=== PATIENT | female | born 1955 | race Caucasian/White ===

== ENCOUNTER 2024-03-13 16:00 | Emergency (ER) | payer OTHER ==
[~2024-03-13] VITALS: Ht 175.3 cm; Wt 80.4 kg
[2024-03-13] MEDS ORDERED: ROPINIROLE HCL2 MG PO (16:16)
[2024-03-13] MEDS ORDERED: DULOXETINE HCL60 MG PO (16:17)
[2024-03-13] MEDS ORDERED: OMEPRAZOLE20 MG PO (16:17)
[2024-03-13 16:40] LABS: BASOPHILS 1.5 % (0-2); EOSINOPHILS 0.5 % (0-6); HEMATOCRIT 40.3 % (35.0-50.0); HEMOGLOBIN 13.1 g/dL (12.0-18.0); LYMPHOCYTES 32.3 % (24-44); MCH 29.6 (27-36); MCHC 32.5 g/dl (30-36); MONOCYTES 11.5 % (0-12); NEUTROPHILS 54.2 % (39-80); PLATELET COUNT 314 K/uL (140-440); RBC 4.43 M/ul (4.3-5.7); RDW 16.1 (10.5-15.0)
[2024-03-13] MEDS ORDERED: FAMOTIDINE 20 MG TAB PO ONE (16:45)
[2024-03-13] MEDS ORDERED: ONDANSETRON 4 MG TAB ODT SL ONE (16:45)
[2024-03-13] MEDS ORDERED: FAMOTIDINE 20 MG/ 2 ML VIAL IV ONE (16:45)
[2024-03-13] MEDS ORDERED: ondansetron HCL 4 MG/2 ML VIAL IV ONE (16:45)
[2024-03-13] MEDS ORDERED: LIDOCAINE & ANTACID 35 ML BTL PO ONE (16:45)
[2024-03-13 16:52] LABS: ALBUMIN 3.6 g/dL (3.4-5.0); ALBUMIN/GLOBULIN RATIO 0.86 (1.1-2.4); ANION GAP 12.4 (7-21); BILIRUBIN, TOTAL 0.2 ng/dL (0.2-1.0); BUN/CREATININE RATIO 17.44 (6.0-28.6); CALCIUM 9.3 mg/dL (8.5-10.1); CREATININE, SERUM 0.86 mg/dL (0.55-1.02); POTASSIUM 3.4 mmol/L (3.5-5.1); PROTEIN, TOTAL 7.8 g/dL (6.4-8.2)
[2024-03-13] MEDS ORDERED: PEPCID20 MG PO (17:45)
[2024-03-13] MEDS ORDERED: CARAFATE1 GM PO (17:45)
[2024-03-13] MEDS ORDERED: OMEPRAZOLE40 MG PO (17:45)
[2024-03-13] MEDS ORDERED: ONDANSETRON ODT4 MG PO (17:45)
[2024-03-13 17:50] VITALS: BP 110/88
== END 2024-03-13 17:51 | disposition home or self-care (01) ==
LOC: ED 16:00
PROVIDERS: Emergency Medicine
DX: R10.13 Epigastric pain (principal); R11.2 Nausea with vomiting, unspecified; M06.9 Rheumatoid arthritis, unspecified; Z79.899 Other long term (current) drug therapy
CPT/HCPCS: 36415; 80053; 83690; 85025; 96374; 96375; 99284-25; J2405

== ENCOUNTER 2024-04-12 08:58 | Emergency (ER) | payer OTHER ==
[~2024-04-12] VITALS: Ht 175.3 cm; Wt 80.7 kg
[~2024-04-12 08:58] MED LIST: CARAFATE1 GM PO; DULOXETINE HCL60 MG PO; OMEPRAZOLE20 MG PO; OMEPRAZOLE40 MG PO; ONDANSETRON ODT4 MG PO; PEPCID20 MG PO; ROPINIROLE HCL2 MG PO
--- OUTSIDE RECORDS SUMMARY | 2024-04-12 09:00 | XMS ---
PreManage Notification: [employer] Events No recent Security Events currently on file CRITERIA MET - [facility] - 2 Visits in 30 Days CARE PROVIDERS SLOAN SINGH [facility] Current PHONE: [phone] Devorah has no Care Guidelines for this patient. Chandni VISIT COUNT (12 MO.) [address] TOTAL 3 NOTE: Visits indicate total known visits. ED/C VISIT TRACKING (12 MO.) 04/12/2024 08:59 [facility] [place] TYPE: Emergency COMPLAINT: - MEDICATION REACTION 03/13/2024 16:01 [facility] [place] TYPE: Emergency COMPLAINT: - VOMITING DIAGNOSES: - Epigastric pain - Nausea with vomiting, unspecified - Other long term care phlebotomist (current) drug therapy - Rheumatoid arthritis, unspecified - Vomiting, unspecified 06/13/2023 12:21 [facility] [place] TYPE: Emergency DIAGNOSES: - Contusion of left knee, initial encounter - Contusion of right front wall of thorax, initial encounter - Contusion of right shoulder, initial encounter - Contusion of unspecified front wall of thorax, initial encounter - Unspecified fall, initial encounter - FALL HEAD INJURY INPATIENT VISIT TRACKING (12 MO.) No inpatient visits to display in this time frame [email or web address]
[2024-04-12] MEDS ORDERED: LORazepam 1 MG TAB PO ONE (09:30)
[2024-04-12] MEDS ORDERED: FAMOTIDINE20 MG PO (09:41)
[2024-04-12] MEDS ORDERED: BUPROPION XL150 MG PO (09:41)
[2024-04-12] MEDS ORDERED: SUCRALFATE1 GM PO (09:41)
[2024-04-12] MEDS ORDERED: ATIVAN1 MG PO (10:08)
[2024-04-12 10:16] VITALS: BP 129/72
== END 2024-04-12 10:18 | disposition home or self-care (01) ==
LOC: ED 08:58
DX: R45.83 Excessive crying of child, adolescent or adult (principal); T43.295A Adverse effect of other antidepressants, initial encounter; M06.9 Rheumatoid arthritis, unspecified; Z79.899 Other long term (current) drug therapy
CPT/HCPCS: 99283; A9270-GY